=== PATIENT | female | born 1980 | race Two or more races ===

== ENCOUNTER 2024-05-08 14:49 | Inpatient (IN) | payer BC ==
[~2024-05-08] VITALS: Ht 157.5 cm; Wt 61.7 kg
[2024-05-08 15:05] VITALS: TEMP 98.4
[2024-05-08] MEDS ORDERED: ONDANSETRON HCL/PF 4 MG/2 ML VIAL ONE ×2 (15:07→18:50)
[2024-05-08] MEDS ORDERED: MORPHINE SULFATE INJ 4 MG/ML DISP.SYRIN ONE ×2 (15:07→16:24)
[2024-05-08] MEDS: ONDANSETRON HCL/PF 4 MG/2 ML VIAL IVP ONE (15:09)
[2024-05-08] MEDS: MORPHINE SULFATE INJ 2 MG/ML DISP.SYRIN IV ONE ×2 (15:10→16:31)
[2024-05-08 15:36] LABS: EOSINOPHILS # (AUTO) 0.1 K/uL (0.0-0.7); EOSINOPHILS % (AUTO) 1.7 % (0.0-6.0); HEMATOCRIT 46 % (33-45); HEMOGLOBIN 15.5 g/dL (11.5-14.8); LYMPHOCYTES # (AUTO) 2.3 K/uL (0.8-4.8); MEAN CORPUSCULAR HEMOGLOBIN 31 PG (26.0-33.0); MEAN CORPUSCULAR HGB CONC 34 g/dl (31.0-36.0); MEAN CORPUSCULAR VOLUME 92 fL (82-100); MONOCYTES # (AUTO) 0.4 K/uL (0.1-1.30); MONOCYTES % (AUTO) 7.7 % (2.0-12.0); NEUTROPHILS % (AUTO) 41.6 % (43.0-81.0); PLATELET COUNT (AUTO) 432 K/uL (150-450); RED BLOOD CELL COUNT(AUTO) 4.96 MIL/uL (4.0-5.2); RED CELL DISTRIBUTION WIDTH 13.3 % (11.5-15.0); WHITE BLOOD COUNT (AUTO) 4.9 K/uL (4.3-11.0)
[2024-05-08] MEDS: KETAMINE HCL(200MG/20ML) 10 MG/ML VIAL IV ONE (15:37)
[2024-05-08] MEDS ORDERED: IOHEXOL-300 100 ML VIAL IV ONE (15:40)
[2024-05-08] MEDS ORDERED: IV NS 0.9% 250 ML IV ONE ×2 (15:41→19:29)
[2024-05-08 16:03] LABS: LACTIC ACID 2.3 mmol/L (0.4-2.0)
[2024-05-08 16:24] LABS: APPEARANCE,URINE Clear (CLEAR); BILIRUBIN,URINE Negative (NEGATIVE); BLOOD, URINE Large Ery/uL (NEGATIVE); COLOR,URINE YELLOW (YELLOW); KETONES,URINE 80 mg/dL (NEGATIVE); LEUKOCYTE ESTERASE ,URINE Negative (NEGATIVE); NITRITE, URINE Negative (NEGATIVE); PH,URINE 5.5 (5.0-8.0); PROTEIN,URINE Negative (NEGATIVE); UGLUCOSE Negative (NEGATIVE); UROBILINOGEN,URINE 0.2 EU/dL (0.2)
[2024-05-08 16:26] LABS: PREGNANCY TEST URINE QUAL NEGATIVE (NEGATIVE)
[2024-05-08 16:28] LABS: ADD URINE CULTURE YES; BACTERIA,URINE Few /HPF (None Seen); RBC,URINE 21-50 /HPF (0-2); SQUAMOUS EPITHELIAL CELL,UR Few /HPF (None Seen)
[2024-05-08 16:32] LABS: CALCIUM, SERUM 9.1 mg/dL (8.5-10.1); CREATININE 0.7 mg/dL (0.6-1.3); POTASSIUM 3.1 mmol/L (3.5-5.1)
[2024-05-08] MEDS: IV NS 0.9% 1,000 ML BAG IV ONE (16:32)
[2024-05-08 16:38] LABS: ALBUMIN 3.5 g/dL (3.4-5.0); BILIRUBIN,DIRECT 0.2 mg/dL (0.0-0.2); BILIRUBIN,TOTAL 0.6 mg/dL (0.2-1.0); TOTAL PROTEIN, SERUM 8.2 g/dL (6.4-8.2)
[2024-05-08] MEDS ORDERED: HYDROMORPHONE 1 MG/1 ML DISP.SYRIN ONE (17:19)
[2024-05-08] MEDS: HYDROMORPHONE 1 MG/1 ML DISP.SYRIN IV ONE ×2 (17:24→23:30)
[2024-05-08] MEDS: CEFEPIME 1 GM in IV D5W 50 ML IV ONE (17:42)
[2024-05-08] MEDS ORDERED: ACET-2030 PO (18:12)
[2024-05-08] MEDS ORDERED: IBUP-1955 PO (18:12)
[2024-05-08 18:30] VITALS: BP 120/74; O2SAT 97
[2024-05-08] MEDS ORDERED: Z GUARD REMEDY 4 OZ OINT TP PRN (18:30)
[2024-05-08] MEDS ORDERED: MAGNESIUM HYDROXIDE 30 ML UDC PO PRN (18:30)
[2024-05-08] MEDS ORDERED: MAG HYDROX/AL HYDROX/SIMETH 30 ML UDC PO PRN (18:30)
[2024-05-08] MEDS ORDERED: ACETAMINOPHEN 325 MG TABLET ONE (18:50)
[2024-05-08] MEDS: ONDANSETRON HCL/PF 4 MG/2 ML VIAL IVP PRN (18:58)
[2024-05-08] MEDS: ACETAMINOPHEN 325 MG TABLET PO PRN (18:58)
[2024-05-08] MEDS ORDERED: IOHEXOL-350 100 ML VIAL IV ONE (19:29)
[2024-05-08] MEDS ORDERED: CT SWABBABLE VALVE TRANS SET 1 EA INFUS.SET MC ONE (19:29)
[2024-05-08] MEDS: HYDROMORPHONE 1 MG/1 ML DISP.SYRIN IV PRN (20:45)
[2024-05-08] MEDS: IV NS 0.9% 1,000 ML IV PRN (21:03)
== END 2024-05-09 | disposition left against medical advice (07) | DRG 390 ==
LOC: ER 15:17 → MED 18:49
PROVIDERS: ADMIT Internal Medicine; ATTEND Internal Medicine
DX: K56.600 Partial intestinal obstruction, unspecified as to cause (principal); Z53.29 Procedure and treatment not carried out because of patient's decision for other reasons; K56.2 Volvulus; R60.9 Edema, unspecified
CPT/HCPCS: 36415; 80048-TC; 80076-TC; 81001; 83605-TC; 83690-TC; 84703-TC; 85025-TC; 87086-TC; A4223; G0378; J0692; J1171; J2270; J2405; J7030; J7050; J7060; Q9967